=== PATIENT | male | born 1990 | race African-American/Black ===

== ENCOUNTER 2019-11-01 06:29 | Emergency (ER) | payer OTHER ==
[~2019-11-01] VITALS: Ht 177.8 cm; Wt 117.9 kg
[2019-11-01 06:33] VITALS: BP 151/98
--- NOTE | 2019-11-01 06:41 | ER.PDOC ---
General Chief Complaint: Requesting Medical Care Stated Complaint: HEADACHE, SEIZURES Time seen by MD: 06:33 Source: EMS Exam Limitations: other (pt is poor historian) History of Present Illness Initial Comments pt presents via EMS with history of 2 seizures in 4 hours; no history of seizure disorder; no description obtained about type of seizures Timing/Onset/Duration: Unknown Duration, Multiple Episodes (2 episodes reported; the first 4 hours DIRECTOR OF IN SERVICE EDUCATION; the 2nd just DIRECTOR OF IN SERVICE EDUCATION), Witnessed (by co-traveller in the car with him) Most Recent Episode: just DIRECTOR OF IN SERVICE EDUCATION Details Of Seizures: none obtained by EMS Preceding Symptoms/Context: none (driving; there has been a recent history of marijuana use) Character Of Seizures: unknown Post-ictal Symptoms: headache Injury: none Past Medical History Medical History: no pertinent history (no history of prior seizures) Family History Significant Family History: no pertinent family hx (no immediate family members with seizure disorder) Social History Drug Use: marijuana Constitutional: no symptoms reported EENTM: no symptoms reported Respiratory: no symptoms reported Cardiovascular: no symptoms reported Gastrointestinal: no symptoms reported Musculoskeletal: no symptoms reported Psychiatric/Neurological: headache (after seizure) Physical Exam General Appearance: alert, no distress EENT: nml eye inspection, PERRL, no nystagmus, nml ENT inspection (there is slight abrasion to right lower lip), pharynx nml Neck/Back: neck supple, non-tender Respiratory: no resp distress, breath sounds nml, no evidence of rib injury CVS: reg rate & rhythm, heart sounds nml Skin: no rash, warm/dry Extremities: no pedal edema Neuro/Psych: oriented x 3, speech nml, mood/affect nml Cranial Nerves: nml tested Sensorimotor: no motor deficit Results/Orders Results/Orders Orders - JOHN DOSS DO Ethanol (11/01/19 07:16) 0.9 % Sodium Chloride (Ns 1000ml) (11/01/19 08:24) 0.9 % Sodium Chloride (Ns 1000ml) (11/01/19 09:00) Vital Signs Date Time Temp Pulse Resp B/P (MAP) Pulse Ox O2 Delivery O2 Flow Rate FiO2 11/01/19 09:39 98.5 71 18 135/85 (102) 99 Room Air 11/01/19 08:39 98.5 63 18 132/87 (102) 99 Room Air 11/01/19 07:45 98.2 76 18 147/82 (103) 99 Room Air 11/01/19 06:45 98.2 75 18 151/98 (115) 99 Room Air 11/01/19 06:45 98.2 75 18 11/01/19 06:33 98.2 75 18 99 Administered Medications Medications (Trade) Dose Ordered Sig/Ethel Route PRN Reason Start Time Stop Time Status Last Admin Dose Admin Lorazepam (Ativan) 1 mg STAT STAT IV 11/01/19 06:42 11/01/19 06:43 UNV 11/01/19 07:10 1 MG Ondansetron HCl (Zofran) 4 mg STAT STAT IV 11/01/19 06:42 11/01/19 06:43 UNV 11/01/19 07:10 4 MG Sodium Chloride 1,000 ml @ 0 mls/hr Q0M ONCE IV 11/01/19 09:00 11/01/19 09:01 DC 11/01/19 08:30 1,200 MLS/HR Laboratory Tests Test 11/01/19 06:49 11/01/19 07:16 11/01/19 09:56 11/01/19 10:00 White Blood Count 12.7 10^3/uL (4.5-11.0) H Red Blood Count 4.95 10^6/uL (4.50-5.90) Hemoglobin 15.5 g/dL (13.9-16.3) Hematocrit 45.2 % (37.0-53.0) Mean Corpuscular Volume 91.3 fL (78-100) Mean Corpuscular Hemoglobin 31.3 pg (26-34) Mean Corpuscular Hemoglobin Concent 34.3 g/dL (33-36.5) Red Cell Distribution Width 12.6 % (11.5-14.5) Platelet Count 262 10^3/uL (150-400) Mean Platelet Volume 11.7 fL (7.8-11.0) H Neutrophils (%) (Auto) 85.9 % (41.0-85.0) H Lymphocytes (%) (Auto) 9.0 % (24.0-44.0) L Monocytes (%) (Auto) 4.3 % (5.0-12.0) L Neutrophils # (Auto) 10.9 10^3/uL (1.8-7.7) H Lymphocytes # (Auto) 1.15 10^3/uL1 (1.0-4.8) Monocytes # (Auto) 0.6 10^3/uL (0.3-0.8) Absolute Immature Granulocyte (auto 0.05 10^3 u/L (0-2) Absolute Eosinophils (auto) 0.0 10^3/uL (0.0-0.2) Immature Granulocytes % 0.40 % (0.00-0.50) Eosinophils % 0.2 % (0.0-5.0) Basophils % 0.2 % (0.0-0.2) Basophils # 0.0 10^3/uL (0.0-0.1) Prothrombin Time 12.0 SEC (9.3-11.3) H Prothrombin Time INR (Non-Therap) 1.2 Activated Partial Thromboplast Time 24.3 SEC (24.67-30.72) Sodium Level 139 mmol/L (132-145) Potassium Level 3.7 mmol/L (3.6-5.2) Chloride Level 101.0 mmol/L (96-109) Carbon Dioxide Level 23.7 mmol/L (20.0-32) Anion Gap 18.0 Blood Urea Nitrogen 13 mg/dL (7-18) Creatinine 1.48 mg/dL (0.59-1.40) H Estimated GFR () 68.0 (>/=60) Est GFR (CKD-EPI)(Non-Afr Thai) 56.2 (>/=60) BUN/Creatinine Ratio 8.0 Glucose Level 142 mg/dL (70-110) H Calcium Level 9.4 mg/dL (8.4-10.5) Total Bilirubin 0.5 mg/dL (0.2-1.0) Aspartate Amino Transferase (AST) 26 U/L (0-35) Alanine Aminotransferase (ALT) 28 U/L (12-78) Alkaline Phosphatase 67 U/L (50-136) Total Creatine Kinase 525 U/L (39-308) H Creatine Kinase MB 2.0 ng/mL (0.5-3.6) Troponin I 0.08 ng/mL (0.00-0.05) H Total Protein 8.2 g/dL (6.4-8.2) Albumin 4.2 g/dL (3.4-5.0) Globulin 4.0 Serum Alcohol < 3 mg/dL (0-50) Urine Opiates Screen NEGATIVE (c/o300ng/mL) Urine Methadone Screen NEGATIVE (c/o300ng/mL) Urine Barbiturates Screen NEGATIVE (c/o200ng/mL) Urine Phencyclidine Screen NEGATIVE (c/o 25ng/mL) Ur Amphetamine/Methamphetamine NEGATIVE (kz1260nh/mL) Urine MDMA Screen (Ecstasy) NEGATIVE (c/o300ng/mL) Urine Benzodiazepines Screen NEGATIVE (c/o200ng/mL) Urine Cocaine Metabolite Screen NEGATIVE (c/o300ng/mL) Ur Tetrahydrocannabinol (THC) Scrn PRESUMPTIVE POSITIVE (c/o Urine Collection Type VOID Urine Color YELLOW (YELLOW) Urine Appearance CLEAR (CLEAR) Urine Bilirubin NEGATIVE MG/DL (NEGATIVE) Urine Ketones 15 mg/dL (NEGATIVE) H Urine Specific [place] 1.020 (1.005-1.035) Urine pH 5 (5.0-6.0) Urine Protein 30 mg/dL (NEGATIVE) H Urine Urobilinogen NORMAL (NEGATIVE) Urine Nitrate NEGATIVE (NEGATAIVE) Urine Leukocyte Esterase NEGATIVE (NEGATIVE) Urine Blood NEGATIVE (NEGATIVE) Urine RBC 0-2 RBC/HPF (NONE SEEN) Urine WBC 0-2 WBC/HPF (0-2) Urine Squamous Epithelial Cells RARE #/HPF (FEW) Urine Bacteria NONE SEEN (NONE SEEN) Urine Coarse Granular Casts 0-2 #/LPF Urine Other 1+ MUCUS #/HPF Urine Glucose NORMAL (NEGATIVE) Progress Progress Patient arrives at shift change. Initial studies ordered/pending. Report shared/care transferred to Dr. Doss. Pt without chest pain, trouble breathing. Trop is slightly elevated, CK as well. This, combined with renal insufficiency, trop elevation likely non-cardiac. I spoke with Cardiology, they agree. I spoke with Hospitalist, and due to new onset repetitive seizures, will need EEG which is not available here. Transfer recommended. Spoke with [facility] transfer Center, accepted to ER by Dr. Silverio. PROCEDURE:CT HEAD OR BRAIN W/O CONTRAST COMPARISON:None. INDICATIONS:seizure, headache TECHNIQUE:CT images were created without intravenous contrast. FINDINGS: VENTRICLES:The ventricles are normal in size and configuration. CEREBRUM:Normal cerebral morphology with appropriate portillo white matter differentiation. CEREBELLUM:Negative. BRAINSTEM:Negative. BASAL CISTERNS:Negative. HEMORRHAGE:No MASS LESION:No ACUTE INFARCT:No SKULL:Normal. SINUSES:Normal. OTHER:None CONCLUSION:No acute intracranial process. Dictated by: Emma Reich M.D. on 11/01/2019 at 07:40 AM EDURE:CHEST 1 VIEW COMPARISON:None. INDICATIONS:seizure FINDINGS: LUNGS/PLEURA:No significant pulmonary parenchymal abnormalities. No effusions. VASCULATURE:Normal. Unremarkable pulmonary vasculature. CARDIAC:Normal. No cardiac silhouette abnormality or cardiomegaly. MEDIASTINUM:Normal. No visible mass or adenopathy. BONES:Normal. No fracture or visible bony lesion. OTHER:Negative. CONCLUSION:No acute pulmonary process. Dictated by: Emma Reich M.D. on 11/01/2019 at 07:43 AM /XRAY/CT/US EKG: NSR, no ST T wave changes Departure Time of Disposition: 10:10 Disposition: 70 DISC/XFER TO [facility]OTH [facility] Impression: Primary Impression: Seizure Additional Impressions: Renal insufficiency Elevated troponin I level Condition: Stable Duration or Time Spent with Pa: 30 Problem Qualifiers MELODY LOVELL DO Nov 01, 2019 06:41 JOHN DOSS DO Nov 01, 2019 10:25
[2019-11-01 06:45] VITALS: BP 151/98
--- NOTE | 2019-11-01 06:47 | PCM.EKG ---
[facility] Test Date: 2019-11-01 Test Time: 06:38:38 Pat Name: DANIELA TORRES Department: Patient ID: [facility]-[id number] Room: Gender: M Jack Winder: VIVIAN : 1990 Requested By: MELODY BEATTY Order Number: [id number] Reading MD: April Beatty Measurements Intervals [place] Rate: 71 P: 61 AL: 152 QRS: 33 QRSD: 101 T: 45 QT: 376 QTc: 409 Interpretive Statements Sinus rhythm Atrial premature complexes in couplets ST elev, probable normal early repol pattern Artifact in lead(s) I,II,aVR,aVL,aVF,V6 and baseline wander in lead(s) V4,V5 No previous ECG available for comparison Electronically Signed On 11-02-2019 7:03:39 CDT by April Beatty Please click the below link to view image of tracing.
[2019-11-01] MEDS ORDERED: ZOFRAN ONE (06:49)
--- NOTE | 2019-11-01 06:49 | NUR ---
ARRIVAL PT ARRIVED TO ED VIA EMS AFTER SPOUSE CALLED 911 FOR PT HAVING SEIZURE. PT DENIES SEIZURE TO THIS NURSE STATES HE JUST HAS A HEADACHE. PT REPORTS DRUG USE YESTERDAY OF MARIJUANA AND EXTASY. BEDSIDE MONITORS APPLIED. VITAL SIGNS STABLE. BED IN LOW LOCKED POSITION WITH SIDE RAILS X2. CALL LIGHT WITHIN REACH.
[2019-11-01] MEDS ORDERED: ATIVAN ONE (06:50)
[2019-11-01 06:53] LABS: BASOPHIL % 0.2 % (0.0-0.2); EOSINOPHIL % 0.2 % (0.0-5.0); LYMPHOCYTES # 1.15 10^3/uL1 (1.0-4.8); MEAN CORP HGB 31.3 pg (26-34); MONOCYTES # 0.6 10^3/uL (0.3-0.8); MONOCYTES % 4.3 % (5.0-12.0); NEUTROPHIL # 10.9 10^3/uL (1.8-7.7); NEUTROPHILS % 85.9 % (41.0-85.0); PLATELET COUNT 262 10^3/uL (150-400); RED CELL DISTRIBUTION WIDTH 12.6 % (11.5-14.5)
[2019-11-01] MEDS: ATIVAN IV STA (07:10)
[2019-11-01] MEDS: ZOFRAN IV STA (07:10)
[2019-11-01 07:20] LABS: CALCIUM 9.4 mg/dL (8.4-10.5); CARBON DIOXIDE 23.7 mmol/L (20.0-32)
--- NOTE | 2019-11-01 07:44 | DIREP ---
PROCEDURE:CT HEAD OR BRAIN W/O CONTRAST COMPARISON:None. INDICATIONS:seizure, headache TECHNIQUE:CT images were created without intravenous contrast. FINDINGS: VENTRICLES:The ventricles are normal in size and configuration. CEREBRUM:Normal cerebral morphology with appropriate portillo white matter differentiation. CEREBELLUM:Negative. BRAINSTEM:Negative. BASAL CISTERNS:Negative. HEMORRHAGE:No MASS LESION:No ACUTE INFARCT:No SKULL:Normal. SINUSES:Normal. OTHER:None CONCLUSION:No acute intracranial process. Dictated by: Emma Reich M.D. on 11/01/2019 at 07:40 AM
[2019-11-01 07:45] VITALS: BP 147/82
--- NOTE | 2019-11-01 07:46 | DIREP ---
PROCEDURE:CHEST 1 VIEW COMPARISON:None. INDICATIONS:seizure FINDINGS: LUNGS/PLEURA:No significant pulmonary parenchymal abnormalities. No effusions. VASCULATURE:Normal. Unremarkable pulmonary vasculature. CARDIAC:Normal. No cardiac silhouette abnormality or cardiomegaly. MEDIASTINUM:Normal. No visible mass or adenopathy. BONES:Normal. No fracture or visible bony lesion. OTHER:Negative. CONCLUSION:No acute pulmonary process. Dictated by: Emma Reich M.D. on 11/01/2019 at 07:43 AM
--- NOTE | 2019-11-01 07:46 | NUR ---
UPDATE PT RESTING IN BED AND STATES HIS HEADACHE IS BETTER NOW. PT VITAL SIGNS STABLE. BED IN LOW LOCKED POSITION WITH SIDERAILS X2. CALL LIGHT WITHIN REACH.
[2019-11-01] MEDS ORDERED: NS 1000ML 1,000 ML ONE (08:24)
[2019-11-01] MEDS: NS 1000ML 1,000 ML IV ONE (08:30)
--- NOTE | 2019-11-01 08:38 | NUR ---
UPDATE PT RESTING IN BED, DENIES PAIN OR NEEDS AT THIS TIME. BED IN LOW LOCKED POSITION WITH SIDERAILS X2. CALL LIGHT WITHIN REACH.
[2019-11-01 08:39] VITALS: BP 132/87
[2019-11-01 09:39] VITALS: BP 135/85
--- NOTE | 2019-11-01 09:40 | NUR ---
DR MEREDITH DOSS ON PHONE ABOUT PT.
--- NOTE | 2019-11-01 09:54 | NUR ---
MIGUEL DOSS ON THE PHONE WITH DOCTOR RIVERA DISCUSSING ADMISSION
--- NOTE | 2019-11-01 09:58 | NUR ---
DR MIGUEL DOSS SPOKE WITH DR RIVERA WHO STATED TO SHIP PT TO [place]. DR DOSS SPEAKING WITH PT.
[2019-11-01 10:00] LABS: BILIRUBIN,URINE NEGATIVE (NEGATIVE); UROBILINOGEN,URINE NORMAL (NEGATIVE)
[2019-11-01 10:06] LABS: APPEARANCE,URINE CLEAR (CLEAR); UA COLOR YELLOW (YELLOW)
--- NOTE | 2019-11-01 10:13 | NUR ---
TRANSFER LINE DR DOSS ON THE PHONE WITH THE TRANSFER LINE.
--- NOTE | 2019-11-01 10:30 | NUR ---
SPOUSE SPOUSE UPDATED ON PLAN OF CARE.
--- NOTE | 2019-11-01 10:37 | NUR ---
REPORT REPORT CALLED TO JEAN PAUL AT [facility].
--- NOTE | 2019-11-01 10:45 | NUR ---
[facility] HERE TO TRANFER PT TO [facility].
== END 2019-11-01 10:45 | disposition other institution (70) ==
LOC: ER 06:29 → EDBD 06:29 → ER 10:45
DX: R56.9 Unspecified convulsions (principal); N28.9 Disorder of kidney and ureter, unspecified; R79.89 Other specified abnormal findings of blood chemistry; F12.90 Cannabis use, unspecified, uncomplicated; Z79.899 Other long term (current) drug therapy
CPT/HCPCS: 36415; 70450; 71045; 80053; 80307; 80320; 80349; 81000; 82550; 82553; 84484; 85025; 85610; 85730; 93005; 96374; 96375; 99285; J2060; J2405; J7030